=== PATIENT | female | born 1965 | race Caucasian/White ===

== ENCOUNTER 2022-10-05 02:05 | Emergency (ER) | payer BC ==
[~2022-10-05] VITALS: Ht 160 cm; Wt 86.2 kg
[2022-10-05 02:10] VITALS: BP_SYST 162
--- NOTE | 2022-10-05 02:10 | NUR ---
Patient triaged and placed in waiting room. VSS and patient appears in no acute distress at this time. Accompanied by fam member, awaiting available bed, and MD notified of need for MSE.
--- NOTE | 2022-10-05 03:20 | NUR ---
ER examining patient in the triage room.
[2022-10-05] MEDS ORDERED: PRED20TA PO (03:42)
[2022-10-05] MEDS ORDERED: LIDOINT TP (03:42)
[2022-10-05] MEDS ORDERED: ACET325T53 PO (03:42)
[2022-10-05] MEDS ORDERED: METH-634 PO (03:42)
[2022-10-05] MEDS ORDERED: HYDR-3917 PO (03:42)
[2022-10-05] MEDS ORDERED: ONDANSETRON 4 MG ODT TAB PO ONE (03:45)
[2022-10-05] MEDS ORDERED: MORPHINE 4 MG INJ. 4 MG/ML VIAL IM ONE (03:45)
[2022-10-05] MEDS ORDERED: methocarbamoL 500 MG TABLET PO ONE (03:45)
[2022-10-05] MEDS ORDERED: predniSONE 20 MG TABLET PO ONE (03:45)
--- NOTE | 2022-10-05 04:11 | NUR ---
Medicated pt as ordered by Dr Nathan.Pt tolerated well.
--- NOTE | 2022-10-05 04:27 | NUR ---
Patient given written and verbal discharge instructions and verbalizes understanding. ER MD discussed with patient the results and treatment provided. Patient in stable condition. ID arm band removed. Rx of Tylenol,[place],Lidocaine HCL,Robaxin,Prednisone given. Patient educated on pain management and to follow up with PMD. Pain Scale 5/10. Opportunity for questions provided and answered. Medication side effect fact sheet provided.
--- NOTE | 2022-10-05 04:27 | NUR ---
pt states pain is better.
[2022-10-05 04:29] VITALS: BP_SYST 151
== END 2022-10-05 04:29 | disposition home or self-care (01) ==
LOC: SED 02:05
DX: S76.212A Strain of adductor muscle, fascia and tendon of left thigh, initial encounter (principal); Z79.899 Other long term (current) drug therapy; X50.0XXA Overexertion from strenuous movement or load, initial encounter; Y93.89 Activity, other specified; Y92.89 Other specified places as the place of occurrence of the external cause; Y99.8 Other external cause status
CPT/HCPCS: 99283; 96372; Q0162; J7512; J2270